=== PATIENT | female | born 1990 | race African-American/Black ===

== ENCOUNTER 2024-04-18 08:40 | Emergency (ER) | payer MEDICAID, OTHER ==
[~2024-04-18] VITALS: Ht 170.2 cm; Wt 58.0 kg
[2024-04-18 08:48] VITALS: BP 137/61; TEMP 98.3; O2SAT 97
[2024-04-18 08:51] VITALS: PULSE 87; RESP 18; O2SAT 100
[2024-04-18] MEDS: KETOROLAC 15MG/ML VIAL IM ONE (12:29)
== END 2024-04-18 14:16 | disposition left against medical advice (07) ==
LOC: ER 08:40
DX: R51.9 Headache, unspecified (principal); J45.909 Unspecified asthma, uncomplicated
CPT/HCPCS: 81025; 99284